=== PATIENT | male | born 1995 | race Hispanic/Latino ===

== ENCOUNTER 2020-01-27 18:15 | Emergency (ER) | payer BC ==
[~2020-01-27] VITALS: Ht 177.8 cm; Wt 130.6 kg
[2020-01-27] MEDS ORDERED: DONNATAL/LIDOCAINE/MAALOX 30 ML SUSP PO ONE (18:45)
[2020-01-27] MEDS ORDERED: LIDOCAINE VISC 2% SOLN 15 ML UDC ONE (19:05)
[2020-01-27] MEDS ORDERED: BELLADONNA ALK/PHENOBARBITAL 5 ML UDC ONE (19:05)
[2020-01-27] MEDS ORDERED: MAGNESIUM/ALUMINUM/SIMETHICONE 30 ML UDC ONE (19:06)
--- NOTE | 2020-01-27 19:49 | Diagnostic Imaging Report ---
EXAMINATION: CXR 2 VIEW - HOPD INDICATION: Pleuritic cp COMPARISON: None FINDINGS: PA and lateral views TUBES and LINES: None. LUNGS/PLEURA: Lungs are well inflated. There is no evidence of pneumonia or pulmonary edema.. There is no pleural effusion or pneumothorax. HEART AND MEDIASTINUM: The cardiomediastinal silhouette is unremarkable. BONES AND SOFT TISSUES: No acute osseous lesion. Soft tissues are unremarkable. UPPER ABDOMEN: No free air under the diaphragm. IMPRESSION: No acute thoracic abnormality. Signed by: Leonides Pradhan MD on 01/27/2020 7:46 PM
== END 2020-01-27 20:10 | disposition home or self-care (01) ==
LOC: FSED 18:15
DX: R07.89 Other chest pain (principal); K21.9 Gastro-esophageal reflux disease without esophagitis; K22.4 Dyskinesia of esophagus; I10 Essential (primary) hypertension; L80 Vitiligo
CPT/HCPCS: 71046; 93005; 99283

== ENCOUNTER 2022-02-18 14:01 | Emergency (ER) | payer SELFPAY ==
[~2022-02-18] VITALS: Ht 177.8 cm; Wt 146.7 kg
[2022-02-18] MEDS ORDERED: KETOROLAC TROMETHAMINE 30 MG/ML VIAL IV STA (14:45)
[2022-02-18] MEDS ORDERED: KETOROLAC TROMETHAMINE 30 MG/ML VIAL ONE (15:05)
[2022-02-18] MEDS ORDERED: PANTOPRAZOLE SO40 MG PO (16:55)
[2022-02-18 17:09] VITALS: BP 145/92
== END 2022-02-18 17:10 | disposition home or self-care (01) ==
LOC: FSED 14:18
DX: R07.89 Other chest pain (principal); E11.65 Type 2 diabetes mellitus with hyperglycemia; R03.0 Elevated blood-pressure reading, without diagnosis of hypertension; E66.01 Morbid (severe) obesity due to excess calories
CPT/HCPCS: 71046; 80053; 82553; 84484; 85025; 93005; 99284; J1885